=== PATIENT | female | born 1970 | race African-American/Black ===

== ENCOUNTER → 2017-06-22 | Outpatient (CLI) | payer OTHER ==
[~2017-06-22] MED LIST: AMOXICILLIN 50500 M1 PO; APAP500; ASPIR 8181 MG PO; AZITHROMYCIN 2250 MG PO; FLEXERIL PO; HYDROCHLOROTHIA25 M1 PO; IBUPROFEN 200200 M1 PO; LISINOPRIL10 MG PO; MUCINEX600 MG PO; PROAIR HFA8.5 GM IH; TENORMIN50 MG PO; TUSSIONEX PENN473 ML PO
== END ==
LOC: ULTRA 15:55
DX: R10.2 Pelvic and perineal pain (principal)

== ENCOUNTER → 2020-07-19 | Outpatient (CLI) | payer OTHER | LOC: SJCVCIMAG 08:04 | PROVIDERS: ATTEND Internal Medicine | DX: I07.1 Rheumatic tricuspid insufficiency (principal); I11.9 Hypertensive heart disease without heart failure; N28.9 Disorder of kidney and ureter, unspecified; F17.210 Nicotine dependence, cigarettes, uncomplicated; Z88.2 Allergy status to sulfonamides; R00.2 Palpitations; Z79.899 Other long term (current) drug therapy; Z95.1 Presence of aortocoronary bypass graft; Q60.0 Renal agenesis, unilateral ==